=== PATIENT | male | born 1995 | race Caucasian/White ===

== ENCOUNTER 2017-04-30 07:27 | Emergency (ER) | payer MEDICAID ==
[2017-04-30 07:36] VITALS: BP 158/76
[2017-04-30] MEDS ORDERED: Ondansetron 4 MG/2 ML SDV IVPUSH ONE (07:49)
[2017-04-30] MEDS ORDERED: LORazepam 2 MG/ML MDV IVPUSH ONE (07:49)
[2017-04-30] MEDS ORDERED: HYDROmorphone 0.5 MG/0.5 ML Syringe IVPUSH ONE ×2 (07:50→08:39)
[2017-04-30] MEDS ORDERED: Sodium Chloride 0.9% 1,000 ML IV SCH ×3 (08:00→10:15)
[2017-04-30] MEDS ORDERED: Ketorolac 30 MG/ML SDV IVPUSH ONE (08:41)
[2017-04-30] MEDS ORDERED: Tamsulosin 0.4 MG Cap.ER PO ONE (08:44)
--- NOTE | 2017-04-30 08:50 | CT ---
CT abdomen and pelvis. Indication: Right-sided pain. Total DLP 475. Findings: Lung bases are clear liver within normal limits. Gallbladder within normal limits. Pancrea s within normal limits. Adrenal glands are within normal limits. Spleen within normal limits. Mild h ydronephrosis right kidney. There is a 4 mm stone eccentric to the right which should be within the bladder rather than UVJ junction on the right. No hydronephrosis left kidney. Noted loops of small b owel. Prior appendectomy. Impression: 1. Mild hydronephrosis right kidney with stone essentially within the bladder eccentric to the right at 4 mm. Findings discussed with Dr. Garza.
--- NOTE | 2017-04-30 08:57 | EDM.PDOC ---
[id number]: [facility] [place] Time Seen by Provider: 04/30/17 07:35 Source of Information: Reports: Patient, Family History Limitations: Reports: No Limitations - History of Present Illness INITIAL COMMENTS - FREE TEXT/NARRATIVE: pt arrived with pain in the rt ower abdoman. He was in extreme pain and called a ambulance He wa given 200mg of fentyl in the ambulance. He was still vry uncomfortable on arrival. He states the pain started very suddenly. He did not vomit but felt nauseated. He was not able to void this am. Onset: Today, Sudden Duration: Hour(s): Location: Reports: Abdomen, Other ( rt lower abdoman. ) Associated Symptoms: Reports: Nausea/Vomiting abdom Pain Score (Numeric/FACES): 10 - Related Data Allergies Allergy/AdvReac Type Severity Reaction Status Date / Time No Known Allergies Allergy Verified 04/30/17 07:40 Home Meds: Home Meds NK [No Known Home Meds] 04/30/17 [History] Past Medical History - Infectious Disease History Infectious Disease History: Reports: Chicken Pox - Past Surgical History GI Surgical History: Reports: Appendectomy Social & Family History - Tobacco Use Smoking Status *Q: Current Every Day Smoker Years of Tobacco use: 10 Packs/Tins Daily: 1 - Recreational Drug Use Recreational Drug Use: Yes Recreational Drug Type: Reports: Marijuana/Hashish Recreational Drug Use Frequency: Socially ED ROS GENERAL - Review of Systems Review Of Systems: See Below Constitutional: Reports: No Symptoms HEENT: Reports: No Symptoms Respiratory: Reports: No Symptoms Cardiovascular: Reports: No Symptoms Endocrine: Reports: No Symptoms GI/Abdominal: Reports: Other ( severe rt lower abdomanal pain. ) : Reports: No Symptoms ED EXAM, GI/ABD - Physical Exam Exam: See Below Text/Narrative:: Pt is a very uncomfortable pt who is shaking. He does not have fever. His pain is very localized to the rt flank and rt lower abdoman. Exam Limited By: No Limitations General Appearance: Alert, Anxious, Severe Distress Eyes: Bilateral: Normal Appearance, EOMI Ears: Normal External Exam Nose: Normal Inspection Throat/Mouth: Normal Inspection Head: Atraumatic Neck: Normal Inspection Respiratory/Chest: No Respiratory Distress Cardiovascular: Regular Rate, Rhythm GI/Abdominal Exam: No Distention, Tender, Other ( rt lower abdomanal tenderness. ) (Male) Exam: Normal Inspection, Other ( bladder scan revealed almost no urine in the bladder. ) Rectal (Males) Exam: Deferred Back Exam: Normal Inspection Extremities: Normal Inspection Course - Vital Signs Last Recorded V/S: Last Vital Signs Temp 35.2 C 04/30/17 07:33 Pulse 82 04/30/17 07:33 Resp 18 04/30/17 07:33 BP 158/76 H 04/30/17 07:33 Pulse Ox 96 04/30/17 07:33 - Orders/Labs/Meds Labs: Laboratory Tests 04/30/17 04/30/17 04/30/17 Range/Units 07:45 07:45 07:45 WBC 15.5 H (4.5-11.0) K/uL RBC 5.00 (4.30-5.90) M/uL Hgb 14.6 (12.0-15.0) g/dL Hct 41.9 (40.0-54.0) % MCV 84 (80-98) fL MCH 29 (27-31) pg MCHC 35 (32-36) % Plt Count 259 (150-400) K/uL Neut % (Auto) 74 H (36-66) % Lymph % (Auto) 15 L (24-44) % Bracken % (Auto) 9 H (2-6) % Eos % (Auto) 2 (2-4) % Baso % (Auto) 1 (0-1) % Sodium 141 (140-148) mmol/L Potassium 3.5 L (3.6-5.2) mmol/L Chloride 104 (100-108) mmol/L Carbon Dioxide 30 (21-32) mmol/L Anion Gap 10.5 (5.0-14.0) mmol/L BUN 15 (7-18) mg/dL Creatinine 1.2 (0.8-1.3) mg/dL Est Cr Clr Drug Dosing 88.30 mL/min Estimated GFR (MDRD) > 60 (>60) Glucose 97 (74-106) mg/dL Calcium 8.9 (8.5-10.1) mg/dL Total Bilirubin 0.2 (0.2-1.0) mg/dL AST 15 (15-37) U/L ALT 19 (12-78) U/L Alkaline Phosphatase 63 (46-116) U/L C-Reactive Protein 0.14 (0.0-0.3) mg/dL Total Protein 7.2 (6.4-8.2) g/dL Albumin 3.7 (3.4-5.0) g/dL Globulin 3.5 (2.3-3.5) g/dL Albumin/Globulin Ratio 1.1 L (1.2-2.2) Lipase (73-393) U/L Urine Color Urine Appearance Urine pH (4.5-8.0) Ur Specific [place] (1.008-1.030) Urine Protein (NEGATIVE) mg/dL Urine Glucose (UA) (NEGATIVE) mg/dL Urine Ketones (NEGATIVE) mg/dL Urine Occult Blood (NEGATIVE) Urine Nitrite (NEGAITVE) Urine Bilirubin (NEGATIVE) Urine Urobilinogen (NORMAL) mg/dL Ur Leukocyte Esterase (NEGATIVE) Urine RBC (0-5) Urine WBC (0-5) Ur Epithelial Cells Amorphous Sediment Urine Bacteria Urine Mucus 04/30/17 04/30/17 Range/Units 07:45 08:35 WBC (4.5-11.0) K/uL RBC (4.30-5.90) M/uL Hgb (12.0-15.0) g/dL Hct (40.0-54.0) % MCV (80-98) fL MCH (27-31) pg MCHC (32-36) % Plt Count (150-400) K/uL Neut % (Auto) (36-66) % Lymph % (Auto) (24-44) % Bracken % (Auto) (2-6) % Eos % (Auto) (2-4) % Baso % (Auto) (0-1) % Sodium (140-148) mmol/L Potassium (3.6-5.2) mmol/L Chloride (100-108) mmol/L Carbon Dioxide (21-32) mmol/L Anion Gap (5.0-14.0) mmol/L BUN (7-18) mg/dL Creatinine (0.8-1.3) mg/dL Est Cr Clr Drug Dosing mL/min Estimated GFR (MDRD) (>60) Glucose (74-106) mg/dL Calcium (8.5-10.1) mg/dL Total Bilirubin (0.2-1.0) mg/dL AST (15-37) U/L ALT (12-78) U/L Alkaline Phosphatase (46-116) U/L C-Reactive Protein (0.0-0.3) mg/dL Total Protein (6.4-8.2) g/dL Albumin (3.4-5.0) g/dL Globulin (2.3-3.5) g/dL Albumin/Globulin Ratio (1.2-2.2) Lipase 86 (73-393) U/L Urine Color Yellow Urine Appearance Clear Urine pH 6.0 (4.5-8.0) Ur Specific [place] 1.020 (1.008-1.030) Urine Protein Negative (NEGATIVE) mg/dL Urine Glucose (UA) Normal (NEGATIVE) mg/dL Urine Ketones Negative (NEGATIVE) mg/dL Urine Occult Blood Negative (NEGATIVE) Urine Nitrite Negative (NEGAITVE) Urine Bilirubin Negative (NEGATIVE) Urine Urobilinogen 1 (NORMAL) mg/dL Ur Leukocyte Esterase Negative (NEGATIVE) Urine RBC Not seen (0-5) Urine WBC Not seen (0-5) Ur Epithelial Cells Not seen Amorphous Sediment Moderate Urine Bacteria Not seen Urine Mucus Not seen Meds: Medications Discontinued Medications Generic Name Dose Route Start Last Admin Trade Name Freq PRN Reason Stop Dose Admin Hydromorphone HCl 0.5 mg 04/30/17 07:50 04/30/17 07:54 Dilaudid IVPUSH 04/30/17 07:51 0.5 mg ONETIME ONE Administration Hydromorphone HCl 0.5 mg 04/30/17 08:39 04/30/17 08:58 Dilaudid IVPUSH 04/30/17 08:40 0.5 mg ONETIME ONE Administration Sodium Chloride 1,000 mls @ 999 mls/hr 04/30/17 08:00 04/30/17 07:54 Normal Saline IV 999 mls/hr ASDIRECTED ERNESTO Administration Sodium Chloride 1,000 mls @ 999 mls/hr 04/30/17 09:15 04/30/17 09:04 Normal Saline IV 999 mls/hr ASDIRECTED ERNESTO Administration Sodium Chloride 1,000 mls @ 999 mls/hr 04/30/17 10:15 04/30/17 10:07 Normal Saline IV 999 mls/hr ASDIRECTED ERNESTO Administration Ketorolac Tromethamine 30 mg 04/30/17 08:41 08/01/17 08:58 Toradol IVPUSH 04/30/17 08:42 30 mg ONETIME ONE Administration Lorazepam 0.5 mg 04/30/17 07:49 04/30/17 07:54 Ativan IVPUSH 04/30/17 07:50 0.5 mg ONETIME ONE Administration Ondansetron HCl 4 mg 04/30/17 07:49 04/30/17 07:54 Zofran IVPUSH 04/30/17 07:50 4 mg ONETIME ONE Administration Tamsulosin HCl 0.4 mg 04/30/17 08:44 04/30/17 08:58 Flomax PO 04/30/17 08:45 0.4 mg ONETIME ONE Administration - Re-Assessments/Exams Free Text/Narrative Re-Assessment/Exam: 04/30/17 08:59 pt was given 2 liters of fluid. He had a mildly elevated wbc. We were not able to get a ua. He appeared to be a kidney stone. A cat scan of the abdoman without contrast was obtained which showed a 4 mm stone in the wall of the bladder. 04/30/17 10:25 pt was given dilaudid and torodol plus flomax. He is painfree at this point. He is on the third liter of fluid. He still has not voided but a small amount. Departure - Departure Time of Disposition: 10:58 Disposition: Home, Self-Care 01 Condition: Fair Clinical Impression: Ureteral calculi - Discharge Information Instructions: Kidney Stones, [id number] Referrals: PCP,None [Primary Care Provider] - Forms: ED Department Discharge Care Plan Goals: push fluids, strain urine for the next 2 days, rtc or call if pain should become severe.
== END 2017-04-30 11:13 | disposition home or self-care (01) ==
LOC: JP.ED 07:27
DX: N13.2 Hydronephrosis with renal and ureteral calculous obstruction (principal); F17.210 Nicotine dependence, cigarettes, uncomplicated; Z90.49 Acquired absence of other specified parts of digestive tract
CPT/HCPCS: 36415; 74176; 80053; 81001; 83690; 85025; 86140; 96361; 96374; 96375; 96376; 99284; A9270; J1170; J1885; J2060; J2405; J7040

== ENCOUNTER 2021-02-10 20:30 | Emergency (ER) | payer MEDICAID ==
[2021-02-10 20:41] VITALS: BP 143/91; PULSE 103
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
[2021-02-10] MEDS ORDERED: HYDROmorphone 1 MG/ML Syringe IM ONE (21:14)
[2021-02-10] MEDS ORDERED: HYDROmorphone 0.5 MG/0.5 ML Syringe IM ONE (21:43)
[2021-02-10] MEDS ORDERED: Ketorolac 30 MG/ML SDV IM ONE (22:25)
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
== END 2021-02-10 22:37 | disposition home or self-care (01) ==
LOC: JP.ED 20:30
DX: S42.022A Displaced fracture of shaft of left clavicle, initial encounter for closed fracture (principal); Z72.0 Tobacco use; V86.56XA Driver of dirt bike or motor/cross bike injured in nontraffic accident, initial encounter
CPT/HCPCS: 73000; 96372; 99283; J1170